=== PATIENT | male | born 1965 | race Caucasian/White ===

== ENCOUNTER → 2018-07-20 | Outpatient (CLI) | payer OTHER ==
--- NOTE | 2018-07-20 11:18 | REP ---
MRI left knee without contrast: History: Left knee meniscal tear. No comparison imaging. Technique: Axial, coronal and sagittal imaging planes were utilized for T1, proton density and T2-weighted scans obtain in the usual fashion with and without fat saturation. MRI findings: There is a fairly large area of subtle marrow edema in the medial tibial plateau. Otherwise, cortical and medullary bone signal intensity are normal. There is a [id number] joint effusion. No discernible Garcia's cyst. There is mild periarticular edema medially. Patellar and quadriceps tendons appear intact. There is mild patellar tendon attachment site spurring. Anterior and posterior cruciate ligaments have an intact appearance. There is no evidence of medial or lateral collateral ligament disruption. The lateral meniscus has an intact appearance. There is heterogeneous increased signal intensity principally in a horizontal distribution in the medial meniscus. There is some irregularity of the inner free margin and a tear of the medial meniscus is noted posteriorly. There appears to be a small free meniscal fragment at the posterior horn. There is also fairly advanced medial compartment chondromalacia with partial thickness irregularity and thinning of the articular cartilage of the medial femoral condyle and more extensive thinning of the articular cartilage of the medial tibial plateau. There is moderate linear fissuring in the trochlear articular cartilage. Patellar cartilage appears intact. Exam is otherwise unremarkable. Impression: Posterior horn medial meniscal tear. Extensive intrameniscal degenerative signal. 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 Moderate to large joint effusion. Electronically Signed by Mac King MD 07/20/2018 06:04 P
== END ==
LOC: M RAD 08:55
PROVIDERS: ATTEND Registered Nurse
DX: M25.562 Pain in left knee (principal)

== ENCOUNTER → 2020-11-20 | Outpatient (CLI) | payer BC, OTHER ==
--- NOTE | 2020-11-20 15:26 | PFTRPT ---
Site: [facility], [address] [place], [address] ID: [id number] Name: CLARA ARELLANO Visit Date: 11/20/2020 Second ID: [id number] Referring Doctor: Monie Szymanski MD Reviewing Doctor: Danny Wasserman MD [employer] 2[employer] Shift: [employer]ANG[employer] Age: 55 : 1965 Sex: Male Race: Height: 71.00 Inches Weight: 250.00 Lbs BSA: 2.32 Order IDs: [id number] Requested Test(s): <RESP-PFT.PFT B/A> Diagnosis: R06.00 of albuterol for post bronchodilator. The results of this test appear to be valid, although the ATS standard for "end of test" was not met. Review Status: Not Reviewed Pre-Bronch Post-Bronch Pred Actual %Pred Actual %Chng SPIROMETRY FVC (L) 5.03 4.93 98 4.98 1 FEV1 (L) 3.83 3.89 101 4.00 2 FEV1/FVC (%) 76 79 103 80 1 FEF 25% (L/sec) 8.29 6.29 75 6.13 -2 FEF 50% (L/sec) 5.13 4.11 80 4.14 FEF 75% (L/sec) 1.66 1.57 94 1.92 22 FEF 25-75% (L/sec) 3.21 3.49 108 3.85 10 FEF Max (L/sec) 9.65 8.86 91 9.14 3 FIVC (L) 4.94 5.04 2 FIF 50% (L/sec) 4.79 9.08 189 9.80 7 FIF Max (L/sec) 9.28 9.98 7 MVV (L/min) 147 158 107 Expiratory Time (sec) 6.41 6.04 -5 Back Extrap Vol (L) 0.11 0.12 5 Time To FEFmax (sec) 0.074 0.070 -5 LUNG VOLUMES SVC (L) 4.95 5.02 101 IC (L) 3.45 4.55 131 ERV (L) 1.50 0.47 31 TGV (L) 3.74 3.89 104 RV (Pleth) (L) 2.24 3.42 152 TLC (Pleth) (L) 7.19 8.44 117 RV/TLC (Pleth) (%) 32 41 126 DIFFUSION DLCOunc (ml/min/mmHg) 29.50 31.20 105 DLCOcor (ml/min/mmHg) 29.50 29.65 100 DL/VA (ml/min/mmHg/L) 4.10 3.80 92 VA (L) 7.19 7.80 108 BHT (sec) 10.05 IVC (L) 4.90 TLC (SB) (L) 7.95 AIRWAYS RESISTANCE Raw (cmH2O/L/s) 1.45 0.74 51 Gaw (L/s/cmH2O) 1.03 1.38 134 sRaw (cmH2O*s) 4.76 2.80 58 sGaw (1/cmH2O*s) 0.20 0.37 184 BLOOD GASES Hgb (gm/dL) 16.6
== END ==
LOC: M CARPUL 14:52
PROVIDERS: ATTEND Internal Medicine Pulmonary Disease
DX: R06.00 Dyspnea, unspecified (principal)

== ENCOUNTER → 2020-11-22 | Outpatient (CLI) | payer BC, OTHER ==
--- NOTE | 2020-11-24 14:31 | SLEEPCENT ---
NOCTURNAL POLYSOMNOGRAPHY DATE: 11/22/2020 ORDERED BY: Monie Szymanski MD Nocturnal polysomnography was performed for evaluation of sleep physiology in this patient with a history of excessive somnolence and irregular breathing in sleep who has comorbidities of coronary artery disease and acid reflux, as well as hypertension. 7 hours and 51 minutes of data were reviewed. There were 339 minutes of sleep identified. Sleep latency was prolonged at 37.5 minutes. REM latency was mildly prolonged at 108 minutes. Sleep architecture showed fragmentation. There were three REM cycles noted. Overall sleep efficiency was 73.7%. The electrocardiogram showed a sinus rhythm with occasional unifocal PVCs. Average heart rate of 60 beats per minute. EEG showed normal waveforms for wake and sleep. There were 132 respiratory events identified of 10 seconds in duration or greater for an apnea-hypopnea index of 23.4. The events were primarily obstructive, not exclusive to sleep stage nor posture. Arousals from respiratory events occurred 6.9 times per hour and oxygen desaturations were seen into the low 80s. IMPRESSION: Obstructive sleep apnea syndrome (G47.33), apnea-hypopnea index 23.4. RECOMMENDATION: The patient should be encouraged to return [facility]. In the interim, alcohol and sedative avoidance should be practiced and caution exercised during the operation of motor vehicles.
== END ==
LOC: M SLEEP 20:00
PROVIDERS: ATTEND Internal Medicine Pulmonary Disease
DX: G47.30 Sleep apnea, unspecified (principal)

== ENCOUNTER → 2020-11-25 | Outpatient (CLI) | payer BC, OTHER ==
[~2020-11-25] MED LIST: METHACHOLINE KIT (J7674) INH ONE
--- NOTE | 2020-11-25 13:58 | PFTRPT ---
Height: 71.00 Inches Weight: 250.00 Lbs BSA: 2.32 Diagnosis: R06.00 DATE: 11/25/2020 ORDERED BY: Monie Szymanski MD QUALITY: Study of excellent technical quality. PROCEDURE: Under protocol, methacholine was administered. Even after a maximal dose of 25 mg or 188.875 CDUs, no provocation dose ever achieved. Some difficulty with the required maneuvers noted. IMPRESSION: Essentially negative methacholine challenge study. MTDD
== END ==
LOC: M CARPUL 12:54
PROVIDERS: ATTEND Internal Medicine Pulmonary Disease
DX: R06.00 Dyspnea, unspecified (principal)

== ENCOUNTER → 2020-12-31 | Outpatient (CLI) | payer BC, OTHER ==
--- NOTE | 2021-01-01 14:22 | SLEEPCENT ---
DATE: 12/31/2020 ORDERED BY: Dr. Szymanski Nocturnal polysomnography was performed for the titration of pressure therapy in this patient with obstructive sleep apnea syndrome, apnea-hypopnea index 23.4. For testing, patient was fit with a ResMed Quattro full-face mask of large size. There was 4 cm of water pressure applied to the circuit, and the lights were extinguished. There was 7 hours and 1 minute of data reviewed. There was 269.5 minutes of sleep identified. Sleep latency was prolonged at 39 minutes. REM latency was mildly prolonged at 111 minutes. Sleep architecture was fair with a period of wake around 4 a.m., resulting in a reduced sleep efficiency of 65.1%. The electrocardiogram shows a sinus rhythm with a average heart rate of 68 beats per minute. EEG showed normal waveforms for wake and sleep. Respiratory events were best palliated with CPAP at a pressure of 8. There was some minor limb activity, and remaining measures of sleep physiology were normal. IMPRESSION: Obstructive sleep apnea syndrome (G47.33). RECOMMENDATION: Nightly use of pressure therapy, 8 cm of water.
== END ==
LOC: M SLEEP 22:00
PROVIDERS: ATTEND Internal Medicine Pulmonary Disease
DX: G47.33 Obstructive sleep apnea (adult) (pediatric) (principal)

== ENCOUNTER → 2023-05-12 | Outpatient (CLI) | payer BC, OTHER | LOC: M RAD 12:35 | PROVIDERS: ATTEND Internal Medicine Pulmonary Disease | DX: Z87.891 Personal history of nicotine dependence (principal) ==

== ENCOUNTER → 2024-06-13 | Outpatient (CLI) | payer BC | LOC: M RAD 08:41 | PROVIDERS: ATTEND Internal Medicine Pulmonary Disease | DX: Z87.891 Personal history of nicotine dependence (principal) ==